=== PATIENT | male | born 1960 | race Asian ===

== ENCOUNTER 2021-04-28 20:47 | Outpatient (CLI) | payer BC | END 2021-04-28 20:48 | disposition EMS.NT | LOC: EMS 20:47 | DX: R53.1 Weakness (principal); R11.0 Nausea ==

== ENCOUNTER 2021-04-29 08:00 | Outpatient (CLI) | payer BC ==
[2021-04-29 14:56] LABS: BASOPHILS % (AUTO) 0.6 %; EOSINOPHILS % (AUTO) 0.9 %; HCT - HEMATOCRIT 41.6 % (42.0-52.0); HGB - HEMOGLOBIN 13.8 g/dL (14.0-18.0); LYMPHOCYTES # (AUTO) 1.1 10^3/uL (1.5-3.5); LYMPHOCYTES % (AUTO) 31.9 %; MEAN CORPUSCULAR HEMOGLOBIN 32.6 pg (27.0-31.0); MEAN CORPUSCULAR HGB CONC 33.2 g/dL (32.0-36.0); MEAN CORPUSCULAR VOLUME 98.3 fL (80.0-94.0); MEAN PLATELET VOLUME 10.4 fL (7.4-11.4); MONOCYTES # (AUTO) 0.3 10^3/uL (0.0-1.0); MONOCYTES % (AUTO) 8.8 %; NEUTROPHILS # (AUTO) 1.9 10^3/uL (1.5-6.6); NEUTROPHILS % (AUTO) 57.2 %; PLT - PLATELET COUNT 229 10^3/uL (130-450); RED BLOOD COUNT 4.23 10^6/uL (4.70-6.10); RED CELL DISTRIBUTION WIDTH 12.9 % (12.0-15.0); WHITE BLOOD COUNT 3.4 x10^3/uL (4.8-10.8)
[2021-04-29 15:10] LABS: ALBUMIN 3.7 g/dL (3.2-5.5); ALBUMIN/GLOBULIN RATIO 1.4 (1.0-2.2); BILIRUBIN,TOTAL 0.9 mg/dL (0.2-1.0); CALCIUM 8.7 mg/dL (8.5-10.3); CREATININE 0.7 mg/dL (0.6-1.2); POTASSIUM 4.7 mmol/L (3.5-5.0); TOTAL PROTEIN 6.3 g/dL (6.7-8.2)
[2021-04-29 15:34] LABS: THYROID STIMULATING HORMONE 1.74 uIU/mL (0.34-5.60)
== END 2021-04-29 23:59 | disposition home or self-care (01) ==
LOC: LAB.S 08:00
PROVIDERS: ATTEND Emergency Medicine
DX: R53.83 Other fatigue (principal); I51.7 Cardiomegaly
CPT/HCPCS: 36415; 80053; 84443; 85025

== ENCOUNTER 2021-07-10 07:38 | Outpatient (CLI) | payer BC | END 2021-07-10 07:39 | disposition home or self-care (01) | LOC: DI 07:38 | PROVIDERS: ATTEND Emergency Medicine | DX: I51.7 Cardiomegaly (principal); R53.83 Other fatigue; R00.1 Bradycardia, unspecified | CPT/HCPCS: 93306 ==

== ENCOUNTER 2022-11-08 11:23 | Outpatient (CLI) | payer BC ==
--- NOTE | 2022-11-08 19:25 | XRAY Report ---
PROCEDURE: Hip w/Pelvis 2-3V RT INDICATIONS: PAIN IN RIGHT HIP TECHNIQUE: AP pelvis with lateral view(s) of the right hip(s). COMPARISON: None. FINDINGS: Bones: No fractures or dislocations. Pelvic ring appears intact. No suspicious bony lesions. There is moderate superior joint space narrowing seen involving both hips. There is associated remode ling change, with subchondral sclerosis and osteophyte formation. Soft tissues: The visualized bowel gas pattern is normal. Heterotopic ossification can be seen super ior to the right greater trochanter. Vasectomy clips can be seen. IMPRESSION: Moderate degenerative change can be seen of both hips. If it would be helpful for clinical management decision making, please consider a dedicated hip MRI f or further evaluation (assuming that there is no contraindication). This should be performed accordi ng to the arthrogram protocol, if there is strong clinical concern for a labral abnormality. Reviewed by: Veto Batista MD on 11/08/2022 6:24 PM [facility] Approved by: Veto Batista MD on 11/08/2022 6:24 PM [facility] Station ID: [id number]
== END 2022-11-08 11:24 | disposition home or self-care (01) ==
LOC: DI 11:23
PROVIDERS: ATTEND Nurse Practitioner
DX: M16.0 Bilateral primary osteoarthritis of hip (principal)

== ENCOUNTER 2022-11-18 13:54 | Outpatient (CLI) | payer BC ==
--- NOTE | 2022-11-18 15:29 | XRAY Report ---
PROCEDURE: Lumbar Spine 2 View INDICATIONS: LOW BACK PAIN, CHRONIC TECHNIQUE: 3 views of the lumbar spine were acquired. COMPARISON: None. FINDINGS: Bones: 5 [id number] vertebrae are present. There is normal bony alignment. No vertebral body compression fractures. No suspicious bony lesions. Disc space narrowing and anterior osteophytes no lynn in the upper lumbar spine Soft tissues: Overlying bowel gas pattern is normal. No suspicious soft tissue calcifications. IMPRESSION: Mild degenerative disc disease noted in the upper lumbar spine. No fracture or malalignm ent Reviewed by: Bernardo Robbins MD on 11/18/2022 2:28 PM [facility] Approved by: Bernardo Robbins MD on 11/18/2022 2:28 PM [facility] Station ID: [id number]
== END 2022-11-18 13:55 | disposition home or self-care (01) ==
LOC: DI 13:54
PROVIDERS: ATTEND Nurse Practitioner
DX: M51.36 Other intervertebral disc degeneration, lumbar region (principal)

== ENCOUNTER 2023-07-30 10:23 | Emergency (ER) | payer BC ==
[2023-07-30 10:46] VITALS: BP 145/101; O2SAT 100
--- NOTE | 2023-07-30 12:49 | ED Physician Documentation ---
PD HPI LOWER EXT INJURY - Stated complaint Stated Complaint: HIP PX - Chief complaint Chief Complaint: Ext Problem - History obtained from History obtained from: Patient - Additional information Additional information: Patient is a 63-year-old male presenting for evaluation of right hip pain that has been worsening for the past 3 to 4 days. 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 No fall or other injury. States he has had pain in this hip in the past. States pain is worse with certain movements. He did take an NSAID today which has helped slightly. Patient was concerned to make sure he does not have a hairline fracture. Review of Systems Constitutional: denies: Fever Cardiac: denies: Chest pain / pressure Respiratory: denies: Dyspnea Musculoskeletal: reports: Joint pain Neurologic: denies: Head injury PD PAST MEDICAL HISTORY - Past Medical History Past Medical History: Yes Musculoskeletal: Other Other Past Medical History: meniscus tear - Past Surgical History Past Surgical History: Yes Ortho: Other - Present Medications Home Medications: Ambulatory Orders Medication Instructions Recorded Confirmed Lidocaine Patch 5% [Lidoderm Patch] 1 patch TOP DAILY PRN #10 patch 07/30/23 - Allergies Allergies/Adverse Reactions: Allergies Allergy/AdvReac Type Severity Reaction Status Date / Time No Known Drug Allergies Allergy Verified 07/30/23 10:44 - Social History Does the pt smoke?: No Smoking Status: Never smoker Does the pt drink ETOH?: No Does the pt have substance abuse?: No - Immunizations Immunizations are current?: No PD ED PE NORMAL - General General: Alert and oriented X 3, No acute distress, Well developed/nourished - HEENT HEENT: Atraumatic - Neck Neck: Supple, no meningeal sign - Cardiac Cardiac: Strong equal pulses - Respiratory Respiratory: No respiratory distress - Back Back: No spinal TTP - Derm Derm: Warm and dry - Extremities Extremities: No deformity, No tenderness to palpate, Other (Mild pain on range of motion of right hip, no leg shortening, patient is standing and moving about easily without any difficulty and ambulating without any difficulty) - Neuro Neuro: No motor deficit, No sensory deficit Results - Vitals Vitals: Vital Signs - 24 hr 07/30/23 10:38 Temperature 36.4 C L Heart Rate 51 L Respiratory 16 Rate Blood Pressure 145/101 H O2 Saturation 100 PD Medical Decision Making - ED course ED course: Patient presenting for evaluation of Right hip pain. Patient is ambulatory here and prefers to be standing. No signs of a septic joint. X-ray was obtained which I reviewed I see degenerative changes but otherwise no fracture or dislocation. Patient counseled on continued supportive care as well as need for close follow-up with primary care provider if symptoms or not improving. Departure - Departure Disposition: 01 Home, Self Care Clinical Impression: Strain of right hip Condition: Stable Instructions: ED Sprain Hip Prescriptions: Lidocaine Patch 5% [Lidoderm Patch] 1 patch TOP DAILY PRN #10 patch PRN Reason: pain Comments: The radiology read for your hip x-ray is still pending but I will notify you of any significant abnormalities. At this time I do not see signs of any fractures or dislocations and you are bearing weight quite well on the leg. There are other structures that can be injured including muscles and ligaments. I would recommend a trial of a light activity, anti-inflammatory such as ibuprofen or acetaminophen and lidocaine patches. I sent a prescription for the lidocaine patches to the [facility]. I would also recommend follow-up with your primary care provider if your symptoms or not improving. Return to the ER with any worsening. Forms: PCP List Discharge Date/Time: 07/30/23 13:40
--- NOTE | 2023-07-30 14:04 | XRAY Report ---
PROCEDURE: Hip w/Pelvis 2-3V RT INDICATIONS: pain TECHNIQUE: AP pelvis with lateral view(s) of the right hip(s). COMPARISON: 11/08/2022 FINDINGS: Bones: No fractures or dislocations. No suspicious bony lesions. Stable appearance of moderate dege nerative changes of the bilateral hips. Lower lumbar spondylosis. Soft tissues: No suspicious soft tissue calcifications or masses. Status post bilateral vasectomy. Stable appearance of heterotopic ossification over the superolateral right hip. IMPRESSION: Right hip without acute fracture or dislocation. Stable appearance of moderate degenerative changes of the bilateral hips. Lower lumbar spondylosis. If there is continued clinical concern for pathology or occult fracture, consider follow-up imaging w ith repeat radiographs in 10-14 days and possible advanced imaging (CT, MRI, bone scan) if symptoms p ersist. Reviewed by: Akin Dietz MD on 07/30/2023 2:03 PM PST Approved by: Akin Dietz MD on 07/30/2023 2:03 PM PST Station ID: [id number]
== END 2023-07-30 13:40 | disposition home or self-care (01) ==
LOC: ED 10:23
DX: S76.011A Strain of muscle, fascia and tendon of right hip, initial encounter (principal); X58.XXXA Exposure to other specified factors, initial encounter
CPT/HCPCS: 99283; 99284

== ENCOUNTER 2023-08-19 19:41 | Emergency (ER) | payer BC ==
[2023-08-19 19:53] VITALS: BP 149/97; O2SAT 100
--- NOTE | 2023-08-19 21:28 | ED Physician Documentation ---
PD HPI HEENT - Stated complaint Stated Complaint: RT EAR PX - Chief complaint Chief Complaint: Heent - Additional information Additional information: 64-year-old male with no significant past medical history presents emergency department today for significant right ear pain and itching. Patient reports this started about 3 days ago he feels like he is now having some enlarged lymph nodes noted in that right ear. He says that if starting to feel full and every time he swallows he hears a popping sensation in the right ear. No left ear pain no fevers or chills no draining coming from right ear no history of recurrent ear infections. There has been no trauma patient denies any history of recent upper respiratory infections but he says that he has chronic allergies. He has taken ibuprofen at home for pain as well as Flonase and Afrin with no relief PD PAST MEDICAL HISTORY - Past Medical History Musculoskeletal: Other - Past Surgical History Past Surgical History: Yes Ortho: Other - Present Medications Home Medications: Ambulatory Orders Medication Instructions Recorded Confirmed Amoxicillin 875 mg PO BID 5 Days #10 tablet 08/19/23 - Allergies Allergies/Adverse Reactions: Allergies Allergy/AdvReac Type Severity Reaction Status Date / Time No Known Drug Allergies Allergy Verified 08/19/23 19:49 - Social History Does the pt smoke?: No Smoking Status: Never smoker Does the pt drink ETOH?: No Does the pt have substance abuse?: No - Immunizations Immunizations are current?: No PD ED PE NORMAL - Vitals Vital signs reviewed: Yes - General General: Alert and oriented X 3 - HEENT HEENT: Atraumatic, Other (Right ear injected tympanic membrane, moderate amount of cerumen, no tragus tenderness, no pain with movement, no jaw trismus. Left ear normal tympanic membrane normal external ear) Results - Vitals Vitals: Vital Signs - 24 hr 08/19/23 08/19/23 19:44 22:12 Temperature 36.2 C L Heart Rate 56 L 50 L Respiratory 17 16 Rate Blood Pressure 149/97 H O2 Saturation 100 100 Oxygen O2 Source Room air PD Medical Decision Making - ED course ED course: Exam and history most consistent with AOM. I have a low suspicion at this time for mastoiditis, malignant otitis externa, or retained foreign body. Prescription of Amoxicillin started here in ER and script sent to preferred pharmacy. Cautious return precautions discussed w/ full understanding. Departure - Departure Disposition: Home, Self Care Clinical Impression: Acute otitis media Qualifiers: Otitis media type: other nonsuppurative Laterality: right Recurrence: not specified as recurrent Qualified Code(s): H65.191 - Other acute nonsuppurative otitis media, right ear Instructions: ED Otitis Media Serous Adult Prescriptions: Amoxicillin 875 mg PO BID 5 Days #10 tablet Comments: Thank you for trusting us with your care. We have put a couple lidocaine drops in your right ear to help with your pain and discomfort that you are experiencing. You can continue to alternate between Tylenol and ibuprofen for pain and discomfort. I have started you on an antibiotic called amoxicillin he will take this twice a day for the next 5 days. I would follow-up with your primary care provider soon as possible to let them know about your ER visit. Please come back to the emergency department if you are having any ear drainage, pain to your jaw, fevers, chills, or any other concerning symptoms. Forms: PCP List Discharge Date/Time: 08/19/23 22:12
[2023-08-19] MEDS: AMOXICILLIN 125 MG CHEW TABLET PO STA ×2 (21:37→21:38)
== END 2023-08-19 22:12 | disposition home or self-care (01) ==
LOC: ED 19:41
DX: H65.191 Other acute nonsuppurative otitis media, right ear (principal)
CPT/HCPCS: 99282; 99283; A9270